=== PATIENT | female | born 1970 | race American Indian/Alaskan Native ===

== ENCOUNTER 2017-05-09 15:44 | Outpatient (CLI) | payer MEDICAID ==
--- NOTE | 2017-05-09 23:12 | XRay Report ---
FINAL REPORT PROCEDURE: XR SHOULDER 2+V RT TECHNIQUE: RIGHT shoulder radiographs including AP view with internal rotation and scapular Y-view. CPT 71242 HISTORY: RIGHT SHOULDER PAIN COMPARISON: No prior studies are available for comparison. FINDINGS: Fracture (s) and/or Dislocation(s): None . Joint space(s): Normal . Soft tissues: Normal . Bone mineralization: Normal . Foreign bodies: None . IMPRESSION: Negative examination
== END 2017-05-09 15:45 | disposition home or self-care (01) ==
LOC: SPVIMAG 15:44
PROVIDERS: ATTEND Internal Medicine
DX: S46.001A Unspecified injury of muscle(s) and tendon(s) of the rotator cuff of right shoulder, initial encounter (principal); X58.XXXA Exposure to other specified factors, initial encounter; Y93.89 Activity, other specified; Y92.89 Other specified places as the place of occurrence of the external cause; Y99.8 Other external cause status